=== PATIENT | male | born 1935 ===

== ENCOUNTER 2021-08-20 21:31 | Inpatient (IN) | payer BC, OTHER ==
[~2021-08-20] VITALS: Ht 170.2 cm; Wt 67.8 kg
[2021-08-20 22:33] LABS: HEMATOCRIT 43.7 % (36.7-47.1); MEAN CORPUSCULAR HEMOGLOBIN 31.2 uug (23.8-33.4); MEAN CORPUSCULAR VOLUME 92.4 fL (73.0-96.2); PLATELET COUNT (AUTO) 267 K/uL (152-348)
[2021-08-20 22:44] LABS: CARBON DIOXIDE 28 mmol/L (21-32); CHLORIDE 103 mmol/L (98-107); CREATININE 1.3 mg/dL (0.6-1.3); GLUCOSE 131 mg/dL (74-106); POTASSIUM 4.1 mmol/L (3.5-5.1); UREA NITROGEN, BLOOD 15 mg/dL (7-18)
[2021-08-20 22:47] LABS: ETHANOL < 3 MG/DL (0-0)
[2021-08-20 22:50] LABS: ALANINE AMINOTRANSFERASE 18 U/L (16-63); ALKALINE PHOSPHATASE 114 U/L (50-136); ASPARTATE AMINOTRANSFERASE 11 U/L (15-37); BILIRUBIN,DIRECT 0.1 mg/dL (0.0-0.2); BILIRUBIN,TOTAL 0.6 mg/dL (0.2-1.0); TOTAL PROTEIN, SERUM 7.2 g/dL (6.4-8.2)
[2021-08-20] MEDS ORDERED: IOHEXOL 300MG/ML 100 ML INFUS..BTL ONE (23:52)
[2021-08-20] MEDS ORDERED: SWABABLE VALVE TRANSFER SET EA MC ONE (23:52)
[2021-08-20] MEDS ORDERED: IV NORMAL SALINE 250 ML IV ONE (23:52)
[2021-08-21] MEDS ORDERED: FOLI1TAB94 PO (01:00)
[2021-08-21] MEDS ORDERED: symbicort INH (01:00)
[2021-08-21] MEDS ORDERED: PRAV20TA4 PO (01:00)
[2021-08-21] MEDS ORDERED: LINA5TAB PO (01:00)
[2021-08-21] MEDS ORDERED: ESCI20TA PO (01:00)
[2021-08-21] MEDS ORDERED: DONE10TA11 PO (01:00)
[2021-08-21] MEDS ORDERED: MEMA10TA PO (01:00)
[2021-08-21] MEDS ORDERED: METF-440 PO (01:00)
[2021-08-21] MEDS ORDERED: SULF1TAB48 PO (01:02)
[2021-08-21] MEDS ORDERED: ampicillin PO (01:02)
[2021-08-21] MEDS ORDERED: LIDOCAINE 2% (UROJET) 10 ML JELLY MM ONE ×2 (04:46→05:15)
[2021-08-21 05:25] LABS: *BILIRUBIN,URIN NEGATIVE (NEGATIVE); *BLOOD, URINE 3+ (NEGATIVE); *CLARITY,URINE CLOUDY (CLEAR); *COLOR,URINE PINK (YELLOW); *KETONES,URINE 1+ (NEGATIVE); *UROBILINOGEN,URINE 0.2 E.U./dl (NORMAL); LEUKOCYTE ESTERASE ,URINE NEGATIVE (NEGATIVE); NITRITE, URINE NEGATIVE (NEGATIVE); PH,URINE 6.5 (5.0-8.0); UGLUCOSE NEGATIVE (NEGATIVE)
[2021-08-21 05:40] LABS: BACTERIA,URINE NONE SEEN /HPF (NONE SEEN); RBC,URINE TNTC /HPF (0-3); SQUAMOUS EPITHELIAL CELL,UR FEW /HPF (NONE SEEN); WBC,URINE NONE SEEN /HPF (0-3)
[2021-08-21 06:14] LABS: *AMPHETAMINE, URINE NEGATIVE (NEGATIVE); *CANNABINOID, URINE NEGATIVE (NEGATIVE); *COCCAINE, URINE NEGATIVE (NEGATIVE); *OPIATE, URINE NEGATIVE (NEGATIVE); *PHENCYCLIDINE SCREEN,URINE NEGATIVE (NEGATIVE)
[2021-08-21] MEDS ORDERED: VANCOMYCIN 1G/D5W 200 ML PIGGYBACK IV ONE (06:15)
[2021-08-21] MEDS ORDERED: PIPERACILLIN SODIUM/TAZOBACTAM 3.375 G in IV DEXTROSE 5% 50 ML IV ONE (06:15)
[2021-08-21] MEDS ORDERED: PIPERACILLIN/TAZOBACTAM/D5W 50 ML IV ONE (06:23)
[2021-08-21] MEDS ORDERED: DEXTROSE 50% 50 ML DISP.SYRIN IV PRN (06:30)
[2021-08-21] MEDS ORDERED: MAGNESIUM HYDROXIDE 30 ML LIQUID UDC PO PRN (06:30)
[2021-08-21] MEDS ORDERED: Z GUARD REMEDY PASTE 57 GM TUBE TOP PRN (06:30)
[2021-08-21] MEDS ORDERED: HYDROCODONE/APAP 5-325MG TABLET PO PRN (06:30)
[2021-08-21] MEDS ORDERED: ACETAMINOPHEN 325 MG TABLET PO PRN (06:30)
[2021-08-21] MEDS ORDERED: ONDANSETRON 4 MG/2 ML VIAL IV PRN (06:30)
[2021-08-21] MEDS: PANTOPRAZOLE SODIUM 40 MG TABLET.DR PO SCH (07:00)
[2021-08-21] MEDS: BLOOD SUGAR DIAGNOSTIC 1 EACH STRIP VI SCH ×4 (07:30→22:53)
[2021-08-21] MEDS ORDERED: PIPERACILLIN/TAZO 2.25 G in IV DEXTROSE 5% 50 ML IV SCH (12:00)
[2021-08-21] MEDS: IV NS 1000 ML 1,000 ML IV PRN ×2 (12:00→22:42)
[2021-08-21] MEDS ORDERED: PIPERACILLIN/TAZOBACTAM/D5W 50 ML ONE ×2 (12:08→17:19)
[2021-08-21] MEDS: PIPERACILLIN/TAZO 2.25 G in IV DEXTROSE 5% 50 ML IV SCH ×2 (12:18→17:17)
[2021-08-21] MEDS: ERYTHROMYCIN 0.5% OPHT OINT 3.5 GM TUBE RIGHTEYE SCH ×3 (12:22→20:06)
[2021-08-21] MEDS ORDERED: ERYTHROMYCIN 0.5% OPHT OINT 3.5 GM TUBE ONE (12:30)
[2021-08-21] MEDS ORDERED: PIPERACILLIN SODIUM/TAZOBACTAM 3.375 G in IV DEXTROSE 5% 50 ML IV SCH (14:00)
[2021-08-21] MEDS: INSULIN REGULAR, HUMAN 300 UNIT/3 ML VIAL SQ PRN (17:17)
[2021-08-21] MEDS ORDERED: INSULIN REGULAR, HUMAN 300 UNIT/3 ML VIAL ONE (17:18)
[2021-08-21] MEDS: ENOXAPARIN SODIUM 40 MG/0.4 ML DISP.SYRIN SQ SCH (22:43)
[2021-08-21 23:21] VITALS: BP 100/64
[2021-08-22] MEDS ORDERED: ERYTHROMYCIN 0.5% OPHT OINT 3.5 GM TUBE ONE (00:46)
[2021-08-22] MEDS ORDERED: PIPERACILLIN/TAZOBACTAM/D5W 100 ML ONE (00:46)
[2021-08-22] MEDS ORDERED: VANCOMYCIN IV 200 ML ONE (00:46)
[2021-08-22] MEDS: ERYTHROMYCIN 0.5% OPHT OINT 3.5 GM TUBE RIGHTEYE SCH ×6 (00:49→20:58)
[2021-08-22] MEDS: PIPERACILLIN/TAZO 2.25 G in IV DEXTROSE 5% 50 ML IV SCH ×2 (00:49→05:19)
[2021-08-22 04:00] VITALS: BP 150/69
[2021-08-22] MEDS: PANTOPRAZOLE SODIUM 40 MG TABLET.DR PO SCH (06:30)
[2021-08-22] MEDS: VANCOMYCIN IV 1,000 MG in IV DEXTROSE 5% 250 ML IV SCH (06:30)
[2021-08-22] MEDS: BLOOD SUGAR DIAGNOSTIC 1 EACH STRIP VI SCH ×4 (06:36→20:53)
[2021-08-22 07:16] LABS: HEMATOCRIT 38.5 % (36.7-47.1); MEAN CORPUSCULAR HEMOGLOBIN 30.5 uug (23.8-33.4); PLATELET COUNT (AUTO) 234 K/uL (152-348)
[2021-08-22 07:33] LABS: CREATININE 1.2 mg/dL (0.6-1.3); MAGNESIUM 2.1 mg/dL (1.8-2.4); PHOSPHOROUS 3.2 mg/dL (2.5-4.9); POTASSIUM 3.6 mmol/L (3.5-5.1)
[2021-08-22 07:41] LABS: THYROID STIMULATING HORMONE 4.58 mIU/mL (0.358-3.740)
[2021-08-22] MEDS ORDERED: METFORMIN HCL 500 MG TABLET PO SCH ×2 (08:00)
[2021-08-22] MEDS: ESCITALOPRAM OXALATE 10 MG TABLET PO SCH (09:11)
[2021-08-22] MEDS: LINAGLIPTIN 5 MG TABLET PO SCH (09:11)
[2021-08-22] MEDS: DONEPEZIL 10 MG TABLET PO SCH (09:12)
[2021-08-22] MEDS: FOLIC ACID 1 MG TABLET PO SCH (09:12)
[2021-08-22] MEDS: MEMANTINE HCL 10 MG TABLET PO SCH ×2 (09:12→17:49)
[2021-08-22 11:00] VITALS: BP 111/70
[2021-08-22] MEDS: INSULIN REGULAR, HUMAN 300 UNIT/3 ML VIAL SQ PRN ×2 (12:09→20:56)
[2021-08-22] MEDS: PIPERACILLIN SODIUM/TAZOBACTAM 3.375 G in IV DEXTROSE 5% 50 ML IV SCH ×3 (12:32→23:48)
[2021-08-22] MEDS ORDERED: METF-494 PO (12:54)
[2021-08-22] MEDS ORDERED: AMLO10TA59 PO (12:58)
[2021-08-22] MEDS: IV NS 1000 ML 1,000 ML IV PRN (15:32)
[2021-08-22 16:00] VITALS: BP 95/62
[2021-08-22 16:30] VITALS: BP 120/62
[2021-08-22 20:10] VITALS: BP 140/73
[2021-08-22] MEDS: ENOXAPARIN SODIUM 40 MG/0.4 ML DISP.SYRIN SQ SCH (20:56)
[2021-08-23 00:30] VITALS: BP 117/68
[2021-08-23] MEDS: LORAZEPAM 2 MG/1 ML VIAL IV PRN (00:49)
[2021-08-23] MEDS: ERYTHROMYCIN 0.5% OPHT OINT 3.5 GM TUBE RIGHTEYE SCH ×6 (01:04→20:08)
[2021-08-23 04:30] VITALS: BP 136/73
[2021-08-23] MEDS: PIPERACILLIN SODIUM/TAZOBACTAM 3.375 G in IV DEXTROSE 5% 50 ML IV SCH ×4 (06:03→23:06)
[2021-08-23] MEDS: BLOOD SUGAR DIAGNOSTIC 1 EACH STRIP VI SCH ×4 (06:12→20:31)
[2021-08-23] MEDS: PANTOPRAZOLE SODIUM 40 MG TABLET.DR PO SCH (06:12)
[2021-08-23] MEDS: VANCOMYCIN IV 1,000 MG in IV DEXTROSE 5% 250 ML IV SCH (06:31)
[2021-08-23] MEDS: METFORMIN XR 500 MG TAB.SR.24H PO SCH (08:00)
[2021-08-23] MEDS: DONEPEZIL 10 MG TABLET PO SCH (09:00)
[2021-08-23] MEDS: ESCITALOPRAM OXALATE 10 MG TABLET PO SCH (09:00)
[2021-08-23] MEDS ORDERED: METFORMIN XR 500 MG TAB.SR.24H PO SCH (09:00)
[2021-08-23] MEDS: LINAGLIPTIN 5 MG TABLET PO SCH (09:00)
[2021-08-23] MEDS: MEMANTINE HCL 10 MG TABLET PO SCH ×2 (09:00→17:00)
[2021-08-23] MEDS: AMLODIPINE 10 MG TABLET PO SCH (09:00)
[2021-08-23] MEDS: FOLIC ACID 1 MG TABLET PO SCH (09:00)
[2021-08-23] MEDS: IV NS 1000 ML 1,000 ML IV PRN (13:04)
[2021-08-23 17:15] VITALS: BP 136/70
[2021-08-23] MEDS ORDERED: GADOTERATE MEGLUMINE 10 MMOL/20 ML VIAL IV ONE (18:33)
[2021-08-23 20:00] VITALS: BP 162/70
[2021-08-23] MEDS: ENOXAPARIN SODIUM 40 MG/0.4 ML DISP.SYRIN SQ SCH (20:31)
[2021-08-24] MEDS: ERYTHROMYCIN 0.5% OPHT OINT 3.5 GM TUBE RIGHTEYE SCH ×6 (04:19→20:00)
[2021-08-24 04:47] VITALS: BP 161/71
[2021-08-24 05:38] LABS: HEMATOCRIT 39.2 % (36.7-47.1); MEAN CORPUSCULAR HEMOGLOBIN 30.6 uug (23.8-33.4); MEAN CORPUSCULAR VOLUME 91.6 fL (73.0-96.2); PLATELET COUNT (AUTO) 210 K/uL (152-348)
[2021-08-24] MEDS: PIPERACILLIN SODIUM/TAZOBACTAM 3.375 G in IV DEXTROSE 5% 50 ML IV SCH (05:50)
[2021-08-24] MEDS: VANCOMYCIN IV 1,000 MG in IV DEXTROSE 5% 250 ML IV SCH (05:50)
[2021-08-24] MEDS: PANTOPRAZOLE SODIUM 40 MG TABLET.DR PO SCH (06:12)
[2021-08-24] MEDS: BLOOD SUGAR DIAGNOSTIC 1 EACH STRIP VI SCH ×4 (06:21→23:03)
[2021-08-24 06:57] LABS: CARBON DIOXIDE 24 mmol/L (21-32); CHLORIDE 105 mmol/L (98-107); CREATININE 1.4 mg/dL (0.6-1.3); GLUCOSE 204 mg/dL (74-106); MAGNESIUM 2.4 mg/dL (1.8-2.4); PHOSPHOROUS 3.2 mg/dL (2.5-4.9); POTASSIUM 3.7 mmol/L (3.5-5.1); UREA NITROGEN, BLOOD 12 mg/dL (7-18)
[2021-08-24] MEDS: INSULIN REGULAR, HUMAN 300 UNIT/3 ML VIAL SQ PRN ×2 (07:36→16:23)
[2021-08-24] MEDS: AMLODIPINE 10 MG TABLET PO SCH (09:00)
[2021-08-24] MEDS: FOLIC ACID 1 MG TABLET PO SCH (09:08)
[2021-08-24] MEDS: DONEPEZIL 10 MG TABLET PO SCH (09:08)
[2021-08-24] MEDS: MEMANTINE HCL 10 MG TABLET PO SCH ×2 (09:09→16:26)
[2021-08-24] MEDS: LINAGLIPTIN 5 MG TABLET PO SCH (09:09)
[2021-08-24] MEDS: ESCITALOPRAM OXALATE 10 MG TABLET PO SCH (09:09)
[2021-08-24] MEDS: METFORMIN XR 500 MG TAB.SR.24H PO SCH (09:16)
[2021-08-24] MEDS ORDERED: VANCOMYCIN IV 1,000 MG in IV DEXTROSE 5% 250 ML IV SCH (10:15)
[2021-08-24] MEDS ORDERED: PIPERACILLIN/TAZO 2.25 G in IV DEXTROSE 5% 50 ML IV SCH (12:00)
[2021-08-24 12:25] VITALS: BP 160/67
[2021-08-24] MEDS: LORAZEPAM 2 MG/1 ML VIAL IV PRN (13:59)
[2021-08-24] MEDS ORDERED: CEFEPIME HCL 1 G in IV DEXTROSE 5% 50 ML IV SCH (14:00)
[2021-08-24] MEDS: CLINDAMYCIN PHOSPHATE IV 900 MG in IV DEXTROSE 5% 100 ML IV SCH ×2 (14:20→23:08)
[2021-08-24] MEDS: CEFEPIME HCL 2 G in IV DEXTROSE 5% 100 ML IV SCH (15:18)
[2021-08-24 16:13] VITALS: BP 155/62
[2021-08-24] MEDS: IV NS 1000 ML 1,000 ML IV PRN (18:40)
[2021-08-24 20:00] VITALS: BP 61/38
[2021-08-24] MEDS: ENOXAPARIN SODIUM 40 MG/0.4 ML DISP.SYRIN SQ SCH (21:00)
[2021-08-25] MEDS: CEFEPIME HCL 2 G in IV DEXTROSE 5% 100 ML IV SCH ×2 (03:16→14:42)
[2021-08-25 04:00] VITALS: BP 152/79
[2021-08-25] MEDS: CLINDAMYCIN PHOSPHATE IV 900 MG in IV DEXTROSE 5% 100 ML IV SCH ×3 (06:05→21:12)
[2021-08-25] MEDS: PANTOPRAZOLE SODIUM 40 MG TABLET.DR PO SCH (06:16)
[2021-08-25] MEDS: BLOOD SUGAR DIAGNOSTIC 1 EACH STRIP VI SCH ×4 (07:50→20:29)
[2021-08-25 08:12] LABS: HEMATOCRIT 39.5 % (36.7-47.1); MEAN CORPUSCULAR HEMOGLOBIN 30.5 uug (23.8-33.4); MEAN CORPUSCULAR VOLUME 91.3 fL (73.0-96.2); PLATELET COUNT (AUTO) 229 K/uL (152-348)
[2021-08-25 08:31] LABS: MAGNESIUM 2.5 mg/dL (1.8-2.4); PHOSPHOROUS 2.9 mg/dL (2.5-4.9); POTASSIUM 3.5 mmol/L (3.5-5.1)
[2021-08-25] MEDS: ESCITALOPRAM OXALATE 10 MG TABLET PO SCH (08:36)
[2021-08-25] MEDS: MEMANTINE HCL 10 MG TABLET PO SCH ×2 (08:36→16:44)
[2021-08-25] MEDS: METFORMIN XR 500 MG TAB.SR.24H PO SCH (08:36)
[2021-08-25] MEDS: LINAGLIPTIN 5 MG TABLET PO SCH (08:37)
[2021-08-25] MEDS: DONEPEZIL 10 MG TABLET PO SCH (08:37)
[2021-08-25] MEDS: FOLIC ACID 1 MG TABLET PO SCH (08:37)
[2021-08-25] MEDS: AMLODIPINE 10 MG TABLET PO SCH (08:43)
[2021-08-25] MEDS: ERYTHROMYCIN 0.5% OPHT OINT 3.5 GM TUBE RIGHTEYE SCH ×5 (08:53→23:45)
[2021-08-25 12:00] VITALS: BP 149/71
[2021-08-25] MEDS: INSULIN REGULAR, HUMAN 300 UNIT/3 ML VIAL SQ PRN ×3 (12:25→20:25)
[2021-08-25] MEDS: IV NS 1000 ML 1,000 ML IV PRN (12:30)
[2021-08-25 16:00] VITALS: BP 128/56
[2021-08-25] MEDS: ENOXAPARIN SODIUM 40 MG/0.4 ML DISP.SYRIN SQ SCH ×2 (20:20→21:00)
[2021-08-26] MEDS: LORAZEPAM 2 MG/1 ML VIAL IV PRN (00:28)
[2021-08-26] MEDS: CEFEPIME HCL 2 G in IV DEXTROSE 5% 100 ML IV SCH ×2 (02:16→15:26)
[2021-08-26] MEDS: ERYTHROMYCIN 0.5% OPHT OINT 3.5 GM TUBE RIGHTEYE SCH ×6 (04:04→23:21)
[2021-08-26] MEDS: CLINDAMYCIN PHOSPHATE IV 900 MG in IV DEXTROSE 5% 100 ML IV SCH ×3 (05:21→22:14)
[2021-08-26] MEDS: IV NS 1000 ML 1,000 ML IV PRN (05:21)
[2021-08-26] MEDS: BLOOD SUGAR DIAGNOSTIC 1 EACH STRIP VI SCH ×4 (06:19→21:03)
[2021-08-26] MEDS: PANTOPRAZOLE SODIUM 40 MG TABLET.DR PO SCH (06:19)
[2021-08-26 07:46] LABS: HEMATOCRIT 33.4 % (36.7-47.1); MEAN CORPUSCULAR HEMOGLOBIN 31.2 uug (23.8-33.4); MEAN CORPUSCULAR VOLUME 90.3 fL (73.0-96.2); PLATELET COUNT (AUTO) 223 K/uL (152-348)
[2021-08-26] MEDS: METFORMIN XR 500 MG TAB.SR.24H PO SCH (08:00)
[2021-08-26 08:01] LABS: MAGNESIUM 2.2 mg/dL (1.8-2.4); PHOSPHOROUS 2.9 mg/dL (2.5-4.9); POTASSIUM 3.2 mmol/L (3.5-5.1)
[2021-08-26] MEDS: INSULIN REGULAR, HUMAN 300 UNIT/3 ML VIAL SQ PRN ×3 (08:58→17:43)
[2021-08-26] MEDS: FOLIC ACID 1 MG TABLET PO SCH (08:59)
[2021-08-26] MEDS: LINAGLIPTIN 5 MG TABLET PO SCH (08:59)
[2021-08-26] MEDS: ESCITALOPRAM OXALATE 10 MG TABLET PO SCH (08:59)
[2021-08-26] MEDS: MEMANTINE HCL 10 MG TABLET PO SCH ×2 (08:59→17:38)
[2021-08-26] MEDS: DONEPEZIL 10 MG TABLET PO SCH (08:59)
[2021-08-26] MEDS: AMLODIPINE 10 MG TABLET PO SCH (09:04)
[2021-08-26] MEDS: GLUCERNA SHAKE VANILLA 237 ML CAN PO SCH (09:14)
[2021-08-26 11:00] VITALS: BP 135/83
[2021-08-26] MEDS: POTASSIUM CHLORIDE 20 MEQ TAB.PRT.SR PO SCH ×2 (12:35→14:40)
[2021-08-26 16:00] VITALS: BP 146/75
[2021-08-26] MEDS: ENOXAPARIN SODIUM 40 MG/0.4 ML DISP.SYRIN SQ SCH (22:13)
[2021-08-27] MEDS: ERYTHROMYCIN 0.5% OPHT OINT 3.5 GM TUBE RIGHTEYE SCH ×6 (00:36→20:42)
[2021-08-27] MEDS: IV NS 1000 ML 1,000 ML IV PRN (01:30)
[2021-08-27] MEDS: CEFEPIME HCL 2 G in IV DEXTROSE 5% 100 ML IV SCH ×2 (03:26→15:01)
[2021-08-27] MEDS: CLINDAMYCIN PHOSPHATE IV 900 MG in IV DEXTROSE 5% 100 ML IV SCH ×2 (06:12→22:22)
[2021-08-27] MEDS: PANTOPRAZOLE SODIUM 40 MG TABLET.DR PO SCH (06:31)
[2021-08-27] MEDS: BLOOD SUGAR DIAGNOSTIC 1 EACH STRIP VI SCH ×4 (06:55→20:51)
[2021-08-27] MEDS: GLUCERNA SHAKE VANILLA 237 ML CAN PO SCH ×2 (08:20→16:54)
[2021-08-27] MEDS: DONEPEZIL 10 MG TABLET PO SCH (08:20)
[2021-08-27] MEDS: MEMANTINE HCL 10 MG TABLET PO SCH ×2 (08:20→16:59)
[2021-08-27] MEDS: LINAGLIPTIN 5 MG TABLET PO SCH (08:20)
[2021-08-27] MEDS: METFORMIN XR 500 MG TAB.SR.24H PO SCH (08:20)
[2021-08-27] MEDS: ESCITALOPRAM OXALATE 10 MG TABLET PO SCH (08:20)
[2021-08-27] MEDS: FOLIC ACID 1 MG TABLET PO SCH (08:20)
[2021-08-27] MEDS: AMLODIPINE 10 MG TABLET PO SCH (08:22)
[2021-08-27] MEDS: INSULIN REGULAR, HUMAN 300 UNIT/3 ML VIAL SQ PRN ×3 (11:30→20:48)
[2021-08-27 12:00] VITALS: BP 143/65
[2021-08-27 16:17] VITALS: BP 142/69
[2021-08-27 21:00] VITALS: BP 143/67
[2021-08-28] MEDS: ERYTHROMYCIN 0.5% OPHT OINT 3.5 GM TUBE RIGHTEYE SCH ×6 (00:55→20:59)
[2021-08-28] MEDS: CEFEPIME HCL 2 G in IV DEXTROSE 5% 100 ML IV SCH ×2 (02:50→15:40)
[2021-08-28 04:35] VITALS: BP 149/75
[2021-08-28] MEDS: CLINDAMYCIN PHOSPHATE IV 900 MG in IV DEXTROSE 5% 100 ML IV SCH ×3 (06:07→21:02)
[2021-08-28] MEDS: PANTOPRAZOLE SODIUM 40 MG TABLET.DR PO SCH (06:08)
[2021-08-28] MEDS: BLOOD SUGAR DIAGNOSTIC 1 EACH STRIP VI SCH ×4 (06:14→21:07)
[2021-08-28 07:06] LABS: MEAN CORPUSCULAR HEMOGLOBIN 30.6 uug (23.8-33.4); MEAN CORPUSCULAR VOLUME 90.7 fL (73.0-96.2); PLATELET COUNT (AUTO) 218 K/uL (152-348)
[2021-08-28 07:16] LABS: CREATININE 1.2 mg/dL (0.6-1.3); MAGNESIUM 2.2 mg/dL (1.8-2.4); POTASSIUM 3.7 mmol/L (3.5-5.1)
[2021-08-28] MEDS: METFORMIN XR 500 MG TAB.SR.24H PO SCH (08:00)
[2021-08-28] MEDS: GLUCERNA SHAKE VANILLA 237 ML CAN PO SCH ×2 (08:41→16:51)
[2021-08-28] MEDS: DONEPEZIL 10 MG TABLET PO SCH (08:41)
[2021-08-28] MEDS: FOLIC ACID 1 MG TABLET PO SCH (08:41)
[2021-08-28] MEDS: ESCITALOPRAM OXALATE 10 MG TABLET PO SCH (08:42)
[2021-08-28] MEDS: INSULIN REGULAR, HUMAN 300 UNIT/3 ML VIAL SQ PRN ×2 (08:42→12:00)
[2021-08-28] MEDS: AMLODIPINE 10 MG TABLET PO SCH (08:42)
[2021-08-28] MEDS: MEMANTINE HCL 10 MG TABLET PO SCH ×2 (08:42→16:50)
[2021-08-28] MEDS: LINAGLIPTIN 5 MG TABLET PO SCH (08:42)
[2021-08-28 11:47] VITALS: BP 154/68
[2021-08-28] MEDS: LORAZEPAM 2 MG/1 ML VIAL IV PRN (14:55)
[2021-08-28 16:11] VITALS: BP 137/63
[2021-08-28 20:00] VITALS: BP 150/73
[2021-08-29] MEDS: ERYTHROMYCIN 0.5% OPHT OINT 3.5 GM TUBE RIGHTEYE SCH ×6 (00:55→20:59)
[2021-08-29] MEDS: IV NS 1000 ML 1,000 ML IV PRN ×2 (02:57→21:45)
[2021-08-29] MEDS: CEFEPIME HCL 2 G in IV DEXTROSE 5% 100 ML IV SCH ×2 (02:57→15:21)
[2021-08-29 04:00] VITALS: BP 156/72
[2021-08-29] MEDS: CLINDAMYCIN PHOSPHATE IV 900 MG in IV DEXTROSE 5% 100 ML IV SCH ×3 (06:26→21:01)
[2021-08-29] MEDS: PANTOPRAZOLE SODIUM 40 MG TABLET.DR PO SCH (06:26)
[2021-08-29] MEDS: BLOOD SUGAR DIAGNOSTIC 1 EACH STRIP VI SCH ×4 (06:35→21:11)
[2021-08-29 06:49] LABS: MEAN CORPUSCULAR HEMOGLOBIN 30.8 uug (23.8-33.4); MEAN CORPUSCULAR VOLUME 91.3 fL (73.0-96.2); PLATELET COUNT (AUTO) 221 K/uL (152-348)
[2021-08-29 07:15] LABS: POTASSIUM 3.7 mmol/L (3.5-5.1)
[2021-08-29] MEDS: LINAGLIPTIN 5 MG TABLET PO SCH (08:41)
[2021-08-29] MEDS: MEMANTINE HCL 10 MG TABLET PO SCH ×2 (08:41→16:49)
[2021-08-29] MEDS: METFORMIN XR 500 MG TAB.SR.24H PO SCH (08:41)
[2021-08-29] MEDS: ESCITALOPRAM OXALATE 10 MG TABLET PO SCH (08:41)
[2021-08-29] MEDS: AMLODIPINE 10 MG TABLET PO SCH (08:41)
[2021-08-29] MEDS: GLUCERNA SHAKE VANILLA 237 ML CAN PO SCH ×2 (08:42→16:50)
[2021-08-29] MEDS: DONEPEZIL 10 MG TABLET PO SCH (08:42)
[2021-08-29] MEDS: FOLIC ACID 1 MG TABLET PO SCH (08:42)
[2021-08-29] MEDS: INSULIN REGULAR, HUMAN 300 UNIT/3 ML VIAL SQ PRN ×3 (11:52→21:18)
[2021-08-29 12:00] VITALS: BP 157/70
[2021-08-29 16:00] VITALS: BP 124/63
[2021-08-29 20:00] VITALS: BP 107/69
[2021-08-29] MEDS ORDERED: ENOXAPARIN SODIUM 40 MG/0.4 ML DISP.SYRIN SQ SCH (21:00)
[2021-08-30] MEDS: ERYTHROMYCIN 0.5% OPHT OINT 3.5 GM TUBE RIGHTEYE SCH ×5 (01:20→16:21)
[2021-08-30 04:00] VITALS: BP 139/70
[2021-08-30] MEDS: CEFEPIME HCL 2 G in IV DEXTROSE 5% 100 ML IV SCH ×2 (04:09→15:16)
[2021-08-30] MEDS: CLINDAMYCIN PHOSPHATE IV 900 MG in IV DEXTROSE 5% 100 ML IV SCH ×2 (06:26→13:54)
[2021-08-30] MEDS: PANTOPRAZOLE SODIUM 40 MG TABLET.DR PO SCH (06:26)
[2021-08-30] MEDS: BLOOD SUGAR DIAGNOSTIC 1 EACH STRIP VI SCH ×3 (06:38→16:23)
[2021-08-30] MEDS: GLUCERNA SHAKE VANILLA 237 ML CAN PO SCH ×2 (09:00→17:29)
[2021-08-30] MEDS: FOLIC ACID 1 MG TABLET PO SCH (10:04)
[2021-08-30] MEDS: LINAGLIPTIN 5 MG TABLET PO SCH (10:04)
[2021-08-30] MEDS: ESCITALOPRAM OXALATE 10 MG TABLET PO SCH (10:04)
[2021-08-30] MEDS: DONEPEZIL 10 MG TABLET PO SCH (10:04)
[2021-08-30] MEDS: MEMANTINE HCL 10 MG TABLET PO SCH ×2 (10:10→17:29)
[2021-08-30] MEDS: AMLODIPINE 10 MG TABLET PO SCH (10:11)
[2021-08-30] MEDS: METFORMIN XR 500 MG TAB.SR.24H PO SCH (10:36)
[2021-08-30] MEDS ORDERED: PANT40TA49 PO (11:01)
[2021-08-30] MEDS ORDERED: DAPT500V2 IV (11:01)
[2021-08-30] MEDS ORDERED: NUT.237L28 PO (11:01)
[2021-08-30] MEDS ORDERED: ERYT3.5O24 RIGHTEYE (11:01)
[2021-08-30] MEDS ORDERED: METF-886 PO (11:01)
[2021-08-30] MEDS ORDERED: ERTA1VIA IV (11:01)
[2021-08-30] MEDS: INSULIN REGULAR, HUMAN 300 UNIT/3 ML VIAL SQ PRN (12:05)
[2021-08-30 12:11] VITALS: BP 152/67
[2021-08-30 16:00] VITALS: BP 132/70
== END 2021-08-30 18:53 | DRG 146 ==
LOC: ER 21:37 → TRANSITION 08-21 03:00 → MEDSURG3 08-21 21:37 → TELE3 08-21 22:15 → MEDSURG3 08-23 11:00
PROVIDERS: ADMIT Nurse Practitioner Acute Care; ATTEND Nurse Practitioner Acute Care
PROC: 05H633Z Insertion of Infusion Device into Left Subclavian Vein, Percutaneous Approach (ICD-10-PCS; 2021-08-23)
PROC: B547ZZA Ultrasonography of Left Subclavian Vein, Guidance (ICD-10-PCS; 2021-08-23)
PROC: 05H633Z Insertion of Infusion Device into Left Subclavian Vein, Percutaneous Approach (ICD-10-PCS; 2021-08-24)
PROC: B547ZZA Ultrasonography of Left Subclavian Vein, Guidance (ICD-10-PCS; 2021-08-24)
PROC: 05H533Z Insertion of Infusion Device into Right Subclavian Vein, Percutaneous Approach (ICD-10-PCS; 2021-08-27)
PROC: B546ZZA Ultrasonography of Right Subclavian Vein, Guidance (ICD-10-PCS; 2021-08-27)
PROC: 0J913ZX Drainage of Face Subcutaneous Tissue and Fascia, Percutaneous Approach, Diagnostic (ICD-10-PCS; principal; 2021-08-28)
PROC: 05H533Z Insertion of Infusion Device into Right Subclavian Vein, Percutaneous Approach (ICD-10-PCS; 2021-08-30)
PROC: B546ZZA Ultrasonography of Right Subclavian Vein, Guidance (ICD-10-PCS; 2021-08-30)
DX: C06.0 Malignant neoplasm of cheek mucosa (principal); G93.41 Metabolic encephalopathy; N17.9 Acute kidney failure, unspecified; J44.9 Chronic obstructive pulmonary disease, unspecified; E03.8 Other specified hypothyroidism; E87.6 Hypokalemia; I10 Essential (primary) hypertension; I25.10 Atherosclerotic heart disease of native coronary artery without angina pectoris; E11.9 Type 2 diabetes mellitus without complications; F03.90 Unspecified dementia, unspecified severity, without behavioral disturbance, psychotic disturbance, mood disturbance, and anxiety; Z79.4 Long term (current) use of insulin; Z85.038 Personal history of other malignant neoplasm of large intestine; J32.9 Chronic sinusitis, unspecified; M79.9 Soft tissue disorder, unspecified
CPT/HCPCS: 36415; 70030-TC; 70450; 70487; 71045; 76942; 82378; 83605; 83615; 83735; 84100; 84443; 85025; 85610; 85651; 85730; 87040; 87086; 93005; 93307; 97161; A4663; A6209; A9575; G0378; G0480; J0692; J1650; J1815; J2060; J2543; J3370; J3490; J7030; J7050; J7060; Q9967